=== PATIENT | female | born 1990 | race Two or more races ===

== ENCOUNTER 2017-01-13 18:22 | Outpatient (CLI) | payer OTHER | END 2017-01-13 19:23 | disposition home or self-care (01) | LOC: FBC 18:22 → FBCOUT 18:22 | PROVIDERS: ATTEND Family Medicine | DX: O36.8190 Decreased fetal movements, unspecified trimester, not applicable or unspecified (principal); Z3A.00 Weeks of gestation of pregnancy not specified | CPT/HCPCS: 59025; G0463 ==